=== PATIENT | male | born 1985 | race Two or more races ===

== ENCOUNTER 2023-12-19 11:33 | Outpatient (AMB) | payer MEDICAID, SELFPAY ==
--- NOTE | 2023-12-19 11:34 | MHC.OFFVIS ---
Vital Signs 12/19/23 11:39 Height 6 ft 2 in Weight 276 lb BMI 35.4 BP 129/70 Blood Pressure Location Lt brachial Position Sitting Pulse 72 Intake Visit Reasons: GERD, DYSPHAGIA Intake Note: New consult for GERD and Dysphagia Patient cc: abdominal pain/bloating, N/V, acid reflex with burning sensation, IBS symptoms, between diarrhea and constipation, urgency to used bathroom after any meal, and some swallowing difficulty. Complaint Adjuster Required: No Accompanied by: Self / Same As Patient Allergies No Known Allergies [No Known Allergies*] Allergy (Verified 12/19/23 11:34) HPI Comments Details: 38 y.o M who is here for multiple GI sx as below. Sx fluctuate between constipation - passing rudy and has to strain a lot; and diarrhea. Diarrhea is described as explosive watery BM multiple times a day. Assoc with abd pain in the periumbilical region which gets worse after defecation. Hx of hemorrhoids - had rectal bleeding in his 20s which prompted a colo that confirmed hemorrhoids. Also reports strong urgency to defecate shortly after eating. Thirdly, reports excessive bloating associated with flatulence that gets worse after eating. Goes away on its own. Does not think passing gas helps. Lastly, notices things get stuck while swallowing including liquids. Sometimes even water gets stuck he reports. Has to do deep breathing to get food down otherwise comes back up. EGD/colon 2020 - normal bx. HREM 2019: The mean UES pressure was normal with normal UES relaxation, the LES length is short, normal LES relaxation present.? 9 of the 11 supine wet swallows failed, 2 of the 11 supine wet swallows were weak, and of those week swallows only very minimal amount of contractile activity is identified. Conclusion-normal UES function, LES length is short, normal LES/E GJ resting pressure, normal LES relaxation was present no hiatal hernia was manometry fully detected Morrice classification 3: Ineffective esophageal motility-severe. PFSH Surgical History (Updated 12/19/23 @ 11:52 by Heather Ragland) Hx of colonoscopy Hx of endoscopy Hx of wisdom tooth extraction Hx of tonsillectomy Social History (Updated 12/19/23 @ 11:50 by Heather Ragland) Household Members: Family Alcohol intake: never Patient Tobacco Use Status: Never used Tobacco Review of Systems Const All systems reviewed & are unremarkable except as noted in HPI and below Physical Exam Vital Signs: Last Vital Signs Pulse 72 12/19/23 11:39 BP 129/70 12/19/23 11:39 BMI result Body Mass Index 35.4 No apparent distress Nonicteric Abdomen soft, nondistended Alert and oriented x3, normal gait Assessment & Plan Assessment & Plan (1) Abdominal pain: Code(s): R10.9 - Unspecified abdominal pain Category: Medical (2) Diarrhea: Code(s): R19.7 - Diarrhea, unspecified Category: Medical (3) Bloating: Code(s): R14.0 - Abdominal distension (gaseous) Category: Medical (4) Ineffective esophageal motility: Code(s): K22.4 - Dyskinesia of esophagus Category: Medical Plan Abd pain with bloating and fluctuating constipation/diarrhea consistent with DGBI as hes been previously told. Pt was reassured that IBS-Mixed type is not progressive, or limits life expectancy but definitely affects quality of life. Unfortunately with fluctuating sx unable to stick to one regimen of anti-diarrheal vs laxative option and will largely have to rely on symptomaitc mgmt. Would recommend fiber intake to help with stool consistency. TCAs would be next line for sx control joan for abd cramping and heightened gastrocolic reflex. In terms of swallowing difficulty, HREM suggests ineffective motility. Educated that GERD is a known factor to contribute to IEM and would recommend empiric trial of PPI. Prokinetic agents such as prucalopride considered but pt is already frustrated with diarrhea and urgency. Buspirone may be an effective strategy if ppi trial not effective. Follow up 6 weeks to review next steps including EGD with montiel vs TCAs vs buspirone Coding Level of Care Code New Pt Level 4 (72759) Diagnoses Abdominal pain R10.9 Diarrhea R19.7 Bloating R14.0 Ineffective esophageal motility K22.4
[2023-12-19 11:39] VITALS: BP 129/70; PULSE 72; BMI 35.4
== END 2023-12-19 12:46 | disposition home or self-care (01) ==
PROVIDERS: PCP Nurse Practitioner; Visit Provider Internal Medicine
DX: R10.9 Unspecified abdominal pain (principal); R19.7 Diarrhea, unspecified; R14.0 Abdominal distension (gaseous); K22.4 Dyskinesia of esophagus
CPT/HCPCS: 99499

== ENCOUNTER → 2023-12-19 11:33 | Outpatient (BNVA) | payer MEDICAID, SELFPAY | PROVIDERS: PCP Nurse Practitioner; Visit Provider Internal Medicine ==